=== PATIENT | female | born 1985 | race Caucasian/White ===

== ENCOUNTER 2022-03-21 21:49 | Inpatient (IN) | payer OTHER ==
[~2022-03-21] VITALS: Ht 172.7 cm; Wt 81.6 kg
--- NOTE | 2022-03-21 23:35 | NUR ---
TO ER BED 7. BIBS C/O PALPITATIONS SINCE 8PM. DENIES ANY CHEST PAIN OR SOB. PT IS ALERT AND ORIENTED. AMBULATORY WITH STEADY GAIT. BREATHING IS EVEN AND NON LABORED. CONNECTED TO MONITOR. AWAITING MD ORDERS
--- NOTE | 2022-03-21 23:42 | NUR ---
ROLANDO MONTE AT BEDSIDE FOR EKG
--- NOTE | 2022-03-21 23:43 | NUR ---
PT REQUESTING TEST BEFORE XRAY MADE AWARE
[2022-03-22] VITALS (20 sets, daily range): BP systolic 117–148; BP diastolic 73–100
[2022-03-22 00:09] LABS: BASOPHILS % (AUTO) 0.4 % (0.0-2.0); EOSINOPHILS % (AUTO) 0.8 % (0.0-6.0); HEMATOCRIT 42 % (33-45); HEMOGLOBIN 14.4 g/dL (11.5-14.8); LYMPHOCYTES % (AUTO) 20.1 % (20.0-44.0); MEAN CORPUSCULAR HGB CONC 34 g/dl (31.0-36.0); MEAN CORPUSCULAR VOLUME 86 fL (82-100); MONOCYTES # (AUTO) 0.6 K/uL (0.1-1.30); MONOCYTES % (AUTO) 5.9 % (2.0-12.0); NEUTROPHILS # (AUTO) 7.1 K/uL (1.8-8.9); NEUTROPHILS % (AUTO) 72.8 % (43.0-81.0); PLATELET COUNT (AUTO) 296 K/uL (150-450); RED BLOOD CELL COUNT(AUTO) 4.87 MIL/uL (4.0-5.2); WHITE BLOOD COUNT (AUTO) 9.7 K/uL (4.3-11.0)
[2022-03-22 00:18] LABS: CARBON DIOXIDE 25 mmol/L (21-32); CHLORIDE 104 mmol/L (98-107); GLUCOSE 98 mg/dL (74-106); POTASSIUM 3.7 mmol/L (3.5-5.1); SODIUM SERUM 138 mmol/L (136-145); UREA NITROGEN, BLOOD 15 mg/dL (7-18)
--- NOTE | 2022-03-22 00:18 | NUR ---
URINE SAMPLE COLLECTED AND SENT TO LAB
[2022-03-22 00:24] LABS: ALANINE AMINOTRANSFERASE 25 U/L (12-78); ALKALINE PHOSPHATASE 44 U/L (46-116); ASPARTATE AMINOTRANSFERASE 19 U/L (15-37); BILIRUBIN,DIRECT 0.1 mg/dL (0.0-0.2); BILIRUBIN,TOTAL 0.5 mg/dL (0.2-1.0); TOTAL PROTEIN, SERUM 7.9 g/dL (6.4-8.2)
--- NOTE | 2022-03-22 00:31 | NUR ---
TROP [id number]
--- NOTE | 2022-03-22 00:52 | NUR ---
COVID SWAB COLLECTED AND SENT TO LAB
[2022-03-22] MEDS ORDERED: ASPIRIN 325 MG TABLET ONE (00:53)
[2022-03-22] MEDS ORDERED: ASPIRIN 325 MG TABLET PO ONE (01:00)
[2022-03-22] MEDS ORDERED: ZOLPIDEM TARTRATE 5 MG TABLET PO PRN (01:30)
[2022-03-22] MEDS ORDERED: MAGNESIUM HYDROXIDE 30 ML UDC PO PRN (01:30)
[2022-03-22] MEDS ORDERED: MAG HYDROX/AL HYDROX/SIMETH 30 ML UDC PO PRN (01:30)
[2022-03-22] MEDS ORDERED: ONDANSETRON HCL/PF 4 MG/2 ML VIAL IVP PRN (01:30)
[2022-03-22] MEDS ORDERED: Z GUARD REMEDY 4 OZ OINT TP PRN (01:30)
[2022-03-22] MEDS ORDERED: ACETAMINOPHEN 325 MG TABLET PO PRN (01:30)
--- NOTE | 2022-03-22 02:59 | NUR ---
REPORT GIVEN TO DAVID BRANDT FOR [facility]
--- NOTE | 2022-03-22 04:00 | NUR ---
WASHER REPAIRMAN ADMITTING NOTE RECEIVED PATIENT FROM ER VIA RICHARD @ [id number]; AMBULATORY. PATIENT IS AWAKE, ALERT AND ORIENTED X4. BREATHING IS EVEN AND NONLABORED. ON ROOM AIR; TOLERATING WELL. NOT IN ANY FORM OF RESPIRATORY DISTRESS. ATTACHED TO EXTERNAL TELEMONITOR BBOX WITH CURRENT READING OF SINUS RHYTHM HR-74 BPM WITH BBB. ABLE TO MAKE NEEDS KNOWN. WITH IV ACCESS ON LEFT ANTECUBITAL G#20; PATENT, INTACT AND SALINE LOCKED. VITAL SIGNS TAKEN AND RECORDED FOLLOWS: TEMP-97.5, NV-72, RR-20, BP-130/87 MM HG, O2 SAT-99%. SKIN ASSESSMENT DONE; WARM TO TOUCH AND INTACT. ORIENTED TO THE ROOM AND UNIT. INVENTORY OF PERSONAL BELONGINGS DONE. SAFETY PRECAUTIONS IMPLEMENTED: HEAD OF BED ELEVATED TO 30 DEGREES, CALL LIGHT AND TABLE WITHIN REACH, SIDE RAILS UP X2, BED IN LOWEST LOCKED POSITION. WILL CONTINUE TO MONITOR
--- NOTE | 2022-03-22 06:37 | NUR ---
EMAIL ADMINISTRATOR CLOSING NOTE PATIENT IN BED, RESTING, A/O X4. ABLE TO MAKE NEEDS KNOWN. STABLE ON ROOM AIR. BREATHING EVENLY AND NONLABORED. NO SOB OR S/SX OF DISTRESS NOTED. IV ACCESS ON LEFT ANTECUBITAL #20, SALINE LOCKED, PATENT AND INTACT. ALL NEEDS ATTENDED TO. SAFETY PRECAUTIONS MAINTAINED: BED IN LOWEST, LOCKED POSITION, SIDERAILS UP X2, CALL LIGHT AND TABLE WITHIN REACH. ENDORSED TO MORNING SHIFT FOR [facility]
--- NOTE | 2022-03-22 07:09 | NUR ---
BRANNER MACHINE TENDER NOTE CRITICAL LAB RESULT RECEIVED; TROPONIN-[id number].
--- NOTE | 2022-03-22 08:15 | NUR ---
RN OPENING NOTE PATIENT AWAKE IN BED RESTING. A/O X4. NO S/S OF PAIN NOTED AT THIS TIME. ON ROOM AIR, NO DISTRESS OR SHORTNESS OF BREATH NOTED. IV ACCESS LAC #20G, INTACT, PATENT AND FLUSHING WELL. PATIENT ON EXTERNAL SAFE DEPOSIT ATTENDANT WITH CURRENT READING OF SR AND HR OF 74, NO CARDIAC DISTRESS NOTED. FALL AND SAFETY MEASURES IN PLACE, BED ALARM ON, BED IN LOW AND LOCK POSITION, CALL LIGHT AND TABLE WITHIN EASY REACH, SIDE RAILS UP X2. WILL CONTINUE TO MONITOR.
--- NOTE | 2022-03-22 09:15 | NUR ---
CALLED BY HOUSE SUP TO EVALUATE PATIENT FOR ABNORMAL HEART RHYTHM, UPON ARRIVAL PATIENT AWAKE, ALERT , C/O PALPITATIONS, DENIES CHEST PAIN. MONITOR SHOWS VTACH 220'S. PATIENT WITH PALPABLE PULSE, FAST RATE. CONNECTED TO ZOLL PADS THAT CONFIRMED STABLE V. TACH. SBP >140. SATS 100% ON O2 2L N/C. ER -DR. WINN AT BEDSIDE. TRANSFER TO ICU FOR AMIO BOLUS AND GTT PER PROTOCOL.
--- NOTE | 2022-03-22 09:20 | NUR ---
RN NOTE PATIENT MORNING V/S WERE BP: 113/72, HR: 75, R:16, TEMP: 97.0, O2: 99 AT ROOM AIR. AND ON PLASMA PROCESSING TECHNICIAN SR WITH BBB AND HR OF 74. PATIENT AROUND 0855 TURNED TO V-TACH AND HR OVER 200, PATIENT WAS ACCESS, NO CHEST PAIN, PATIENT NOTED PALPITATIONS, OXYGEN PROVIDED. DR MENDES WAS NOTIFIED BUT NO ANSWER. STAT EKG WAS ORDERED. PATIENT WAS REASSESS BY NURSING WARE CARRIER AND ICU NURSE. COFFERED MEASURES PROVIDED. V/S BP: 148/87, P:68, R:16, O2: 100% AT 2L OXYGEN, ON MONITOR V-TACH AND HR OF 220'S. ER DOCTOR PA ASSESSED PATIENT. DOCTOR CHRIS WAS NOTIFIED. PATIENT WAS TRANSFERRED TO ICU. REPORT WAS GIVEN TO ICU NURSE. CHARGE NURSE AWARE OF TRANSFERRED.
--- NOTE | 2022-03-22 09:30 | NUR ---
SEEN AND EVALUATED BY CHRIS WALDRON DNP. ORDERS PLACED.
--- NOTE | 2022-03-22 09:40 | NUR ---
AMIO 150 MG BOLUS GIVEN.
--- NOTE | 2022-03-22 09:50 | NUR ---
AMIODARONE GTT 1MG/HR INITIATED. ST WITH FREQUENT PVC'S , RATE 110"S AT THIS TIME.
[2022-03-22] MEDS ORDERED: AMIODARONE 150 MG in IV D5W 100 ML IV ONE (10:00)
[2022-03-22] MEDS ORDERED: AMIODARONE 450 MG in IV D5W 241 ML IV PRN (10:00)
[2022-03-22] MEDS ORDERED: LORAZEPAM INJ 2 MG/ML VIAL IV PRN (10:00)
[2022-03-22] MEDS: ASPIRIN 81 MG TAB.CHEW PO SCH (10:08)
[2022-03-22] MEDS: AMIODARONE HCL 200 MG TABLET PO SCH ×2 (14:19→20:54)
--- NOTE | 2022-03-22 19:30 | NUR ---
RN Note Received a 36 year old female, in bed, awake, alert, and verbally responsive. Aox4 and able to make needs known. Breathing even and unlabored. On room air with 02 saturation of 100% via bedside monitor, denies SOB. No cough/congestion/N/V. On tele monitoring. Patient is sinus rhythm and denies chest pain/palpitation at this time. Skin is warm and dry to touch. Left ac 20g PIV, no IVF infusing. Patient is ambulatory, Denies dizziness upon ambulating. Bedside commode present. all belongings within reach. Reminded to use call light when assistance is needed. Bed low, in locked position, Call light within reach. Will continue to monitor.
[2022-03-23] VITALS (21 sets, daily range): BP systolic 13–145; BP diastolic 66–99
[2022-03-23 05:30] LABS: BASOPHILS % (AUTO) 0.6 % (0.0-2.0); HEMATOCRIT 44 % (33-45); HEMOGLOBIN 14.6 g/dL (11.5-14.8); LYMPHOCYTES # (AUTO) 2.4 K/uL (0.8-4.8); LYMPHOCYTES % (AUTO) 32.9 % (20.0-44.0); MEAN CORPUSCULAR HGB CONC 33 g/dl (31.0-36.0); MEAN CORPUSCULAR VOLUME 86 fL (82-100); MONOCYTES # (AUTO) 0.6 K/uL (0.1-1.30); MONOCYTES % (AUTO) 8.1 % (2.0-12.0); NEUTROPHILS # (AUTO) 4.2 K/uL (1.8-8.9); NEUTROPHILS % (AUTO) 56.4 % (43.0-81.0); PLATELET COUNT (AUTO) 268 K/uL (150-450); RED BLOOD CELL COUNT(AUTO) 5.06 MIL/uL (4.0-5.2); WHITE BLOOD COUNT (AUTO) 7.4 K/uL (4.3-11.0)
[2022-03-23 05:54] LABS: CALCIUM, SERUM 9.2 mg/dL (8.5-10.1); CREATININE 1.2 mg/dL (0.6-1.3); MAGNESIUM 2.5 mg/dL (1.8-2.4); POTASSIUM 4.5 mmol/L (3.5-5.1)
--- NOTE | 2022-03-23 07:56 | NUR ---
METALLURGY LABORATORY TECHNICIAN PATIENT RECEIVED IN BED, AWAKE, A&OX4. PATIENT ON RA WITH NO SIGNS OF LABORED BREATHING SAT 100% ON BEDSIDE MONITOR. SINUS RHYTHM ON MONITOR, PT DOES NOT REPORT CHEST PAIN AT THIS TIME. LEFT AC 20G IN PLACE SL. BED LOCKED AND IN LOWEST POSITION, CALL LIGHT WITHIN REACH, 2 SIDE RAILS UP.
[2022-03-23] MEDS ORDERED: LEVO88TA5 PO (07:59)
[2022-03-23] MEDS: AMIODARONE HCL 200 MG TABLET PO SCH ×2 (08:04→20:54)
[2022-03-23] MEDS: ASPIRIN 81 MG TAB.CHEW PO SCH (08:04)
--- NOTE | 2022-03-23 18:37 | NUR ---
HAY BUCKLER PATIENT REMAINS IN BED, AWAKE, A&OX4. PATIENT ON RA WITH NO SIGNS OF LABORED BREATHING SAT 98% ON BEDSIDE MONITOR. SINUS RHYTHM ON MONITOR, PT DOES NOT REPORT CHEST PAIN OR DISCOMFORT THROUGHOUT SHIFT. LEFT AC 20G IN PLACE SL. BED LOCKED AND IN LOWEST POSITION, CALL LIGHT WITHIN REACH, 2 SIDE RAILS UP. WILL ENDORSE TO CHIEF STATION ENGINEER NURSE FOR [facility].
--- NOTE | 2022-03-23 19:40 | NUR ---
N Note Patient in bed, awake, alert, and verbally responsive. Aox4 and able to make needs known. Breathing even and unlabored. On room air with 02 saturation of 100% via bedside monitor, denies SOB. No cough/congestion/N/V. On tele monitoring. Patient is sinus rhythm and denies chest pain/palpitation at this time. Skin is warm and dry to touch. Left ac 20g PIV, no IVF infusing. Patient is ambulatory, Denies dizziness upon ambulating. Bedside commode present. all belongings within reach. Reminded to use call light when assistance is needed. Bed low, in locked position, Call light within reach. Will continue to monitor.
[2022-03-24] VITALS (15 sets, daily range): BP systolic 95–133; BP diastolic 55–85
[2022-03-24 04:57] LABS: BASOPHILS % (AUTO) 0.6 % (0.0-2.0); EOSINOPHILS % (AUTO) 2.5 % (0.0-6.0); HEMATOCRIT 44 % (33-45); LYMPHOCYTES # (AUTO) 2.6 K/uL (0.8-4.8); LYMPHOCYTES % (AUTO) 33.2 % (20.0-44.0); MEAN CORPUSCULAR HGB CONC 34 g/dl (31.0-36.0); MEAN CORPUSCULAR VOLUME 86 fL (82-100); MONOCYTES # (AUTO) 0.5 K/uL (0.1-1.30); MONOCYTES % (AUTO) 6.9 % (2.0-12.0); NEUTROPHILS # (AUTO) 4.5 K/uL (1.8-8.9); NEUTROPHILS % (AUTO) 56.8 % (43.0-81.0); PLATELET COUNT (AUTO) 250 K/uL (150-450); RED BLOOD CELL COUNT(AUTO) 5.08 MIL/uL (4.0-5.2)
[2022-03-24 05:19] LABS: CALCIUM, SERUM 8.7 mg/dL (8.5-10.1); CREATININE 1.2 mg/dL (0.6-1.3); MAGNESIUM 2.2 mg/dL (1.8-2.4); PHOSPHORUS 4.2 mg/dL (2.5-4.9); POTASSIUM 4.1 mmol/L (3.5-5.1)
--- NOTE | 2022-03-24 08:00 | NUR ---
ICU/RN PT IS RESTING ,ON ROOM AIR ,SAT O2-98%.V/S STABLE,AFEBRILE.NO PAIN REPORTED AT THIS TIME.IV-HL.AMBULATING TO BEDSIDE COMMODE.SKIN INTACT.LABS REVIEW.MD AWARE.CONTINUE MONITORING.WAITING FOR CT ANGIOGRAM AND [facility].
[2022-03-24] MEDS: ASPIRIN 81 MG TAB.CHEW PO SCH (08:22)
[2022-03-24] MEDS: AMIODARONE HCL 200 MG TABLET PO SCH ×2 (08:23→21:37)
[2022-03-24] MEDS ORDERED: METOPROLOL TARTRATE INJ 5 MG/5 ML AMPUL ONE ×2 (08:45→08:46)
[2022-03-24] MEDS ORDERED: IOHEXOL-350 100 ML VIAL IV ONE (08:45)
[2022-03-24] MEDS ORDERED: NITROGLYCERIN 0.4 MG/TAB BOTTLE ONE (08:45)
[2022-03-24] MEDS ORDERED: IV NS 0.9% 250 ML IV ONE (08:46)
[2022-03-24] MEDS ORDERED: CT SWABBABLE VALVE TRANS SET 1 EA INFUS.SET MC ONE (08:46)
--- NOTE | 2022-03-24 09:00 | NUR ---
ICU/RN DR HIGGINS SEEN THE PT ,EKG ORDERED AND DONE.NEW IV ANDRE #18 INSERTED-HL. PT HAS EPISODE HR DECREASED TO 48 BPM.
[2022-03-24] MEDS ORDERED: NITROGLYCERIN 0.4 MG/TAB BOTTLE SL ONE (10:00)
[2022-03-24] MEDS ORDERED: METOPROLOL TARTRATE INJ 5 MG/5 ML AMPUL IVP PRN (10:00)
--- NOTE | 2022-03-24 10:40 | NUR ---
ICU/RN PT IS BACK TO THE ROOM ,CT ANGIOGRAM DONE ORDERED.V/S STABLE,AFEBRILE.DUE MEDS ARE GIVEN ORDERED.PT EATS 100% FROM HER MEAL TRAY.
--- NOTE | 2022-03-24 14:15 | NUR ---
ICU/RN PT TRANSFERRED TO TELE UNIT.V/S STABLE,AFEBRILE.NO PAIN REPORTED AT THIS TIME.FAMILY AT BEDSIDE.REPORT GIVEN TO ZOË/RIKKI .
--- NOTE | 2022-03-24 14:30 | NUR ---
RN NOTES RECEIVED PATIENT IN STABLE CONDITION FROM ICU NURSE. PATIENT A/O X4. ON RA TOLERATING WELL WITH NO SOB OR DISTRESS NOTED. PLACED ON COMMERCIAL COLLECTOR READING SR 94 BPM. DENIES PAIN AT THIS TIME. SAFETY PRECAUTIONS IN PLACE. CALL LIGHT WITHIN REACH. WILL CONTINUE TO MONITOR
--- NOTE | 2022-03-24 17:30 | NUR ---
RN NOTES PER CASE MANAGING, AWAITING FOR FINANCIAL CLEARANCE FROM [employer] TO COVER LIFEVEST. FOLLOW UP TOMORROW AM WITH CM. PATIENT MADE AWARE.
--- NOTE | 2022-03-24 19:40 | NUR ---
RN NOTES ENDORSED REPORT TO THE CLICKER OPERATOR NURSE FOR [facility]
--- NOTE | 2022-03-24 20:00 | NUR ---
TELERN RECEIVED FULLY AWAKE, DENIES ANY DISCOMFORTS, TELE SHOWING NSR RATE 65. EAGER TO GO HOME. PATIENT FOR DISCHARGE TOMORROW POST DELIVERY OF [facility] POSSIBLY NOONTIME. DISCUSSED PLAN OF CARE AND MEDICATION REGIMEN, VERY WELL UNDERSTOOD. NO NEEDS AT THIS TIME. SAFETY PRECAUTIONS EMPHASIZED REMINDED TO CALL STAFF FOR ANY ASSISTANCE OR DISCOMFORTS. CALL LIGHT WITHIN REACH. CONTINUED MONITORING. CLOSELY MONITORED.
--- NOTE | 2022-03-24 21:39 | NUR ---
TELERN DUE MED ADMINISTERED. BP 129/79, HEART RATE OF 71 REMAINS SR WITH OCC PVC. ALL NEEDS ATTENDED,CLOSELY WATCHED.
--- NOTE | 2022-03-24 23:56 | NUR ---
TELERN ASLEEP, REMAINS SR ON THE MONITOR. CONTINUED MONITORING
[2022-03-25 01:40] VITALS: BP 114/71
[2022-03-25 05:28] VITALS: BP 117/62
--- NOTE | 2022-03-25 06:34 | NUR ---
TELERN REMAINS STABLE, NO DISCOMFORTS, V/S STABLE. POSS DISCHARGE TODAY.
--- NOTE | 2022-03-25 07:30 | NUR ---
RN NOTES RECEIVED PATIENT AWAKE IN BED. PATIENT IS ALERT AND ORIENTED TIMES 4. NO PAIN NOTED. NO SOB NOTED. NO DISTRESS NOTED. IV ACCESS LAC #18 INTACT . NO DISTRESS NOTED. ON TELE MONITOR READING SR. AMBULATORY. ABLE TO MAKE NEEDS KNOWN. ALL SAFETY MEASURES IN PLACE. BED LOCKED IN THE LOWEST POSITION. CALL LIGHT AND TABLE IN EASY REACH. WILL CONTINUE TO MONITOR.
[2022-03-25 08:39] VITALS: BP 121/86
[2022-03-25] MEDS: ASPIRIN 81 MG TAB.CHEW PO SCH (08:39)
[2022-03-25] MEDS: AMIODARONE HCL 200 MG TABLET PO SCH (08:39)
[2022-03-25] MEDS ORDERED: AMIO200T7 PO (12:56)
[2022-03-25] MEDS ORDERED: ASPI-1169 PO (12:56)
--- NOTE | 2022-03-25 19:03 | NUR ---
PRINT SHOP MANAGER NOTES DISCHARGE PATIENT IN STABLE CONDITION WITH STABLE VITAL SIGNS. NO PAIN NOTED. NO SOB NOTED. NO DISTRESS NOTED. ALL NEEDS ATTENDED. ID BAND REMOVED. IV SITE REMOVED COVERED WITH DRY DRESSING NO BLEEDING NOTED. ALL THE DISCHARGE INSTRUCTIONS GIVEN TO THE PATIENT. PATIENT VERBALIZED UNDERSTANDING. ALL THE BELONGINGS ACCOUNTED AND SIGNED FOR. PATIENT 'S FRIEND CAME TO PICK HER UP. WHEEL THE PATIENT TO THE LOBBY. PATIENT LEFT HOSPITAL IN STABLE VITAL SIGNS WITH STABLE CONDITION. MD AND CHARGE NURSE AWARE OF THE DISCHARGE.
== END 2022-03-25 18:30 | disposition home or self-care (01) | DRG 282 ==
LOC: ER 22:03 → TELE 03-22 02:59 → ICU 03-22 09:28 → TELE 03-24 14:16
PROVIDERS: ADMIT Nurse Practitioner Acute Care; ATTEND Student in an Organized Health Care Education/Training Program
DX: I47.2 Ventricular tachycardia (principal); I21.A1 Myocardial infarction type 2; E03.9 Hypothyroidism, unspecified; F41.9 Anxiety disorder, unspecified; I10 Essential (primary) hypertension; Z20.822 Contact with and (suspected) exposure to COVID-19; Z79.82 Long term (current) use of aspirin; Z82.49 Family history of ischemic heart disease and other diseases of the circulatory system
CPT/HCPCS: 36415; 71045-TC; 75574; 80048-TC; 80061-TC; 80076-TC; 83735-TC; 84100-TC; 84443-TC; 84484-TC; 84703-TC; 85025-TC; 85730-TC; 93307-TC; 94799-TC; C9803; G0378; J0282; J3490; J7050; J7060; Q9967